=== PATIENT | female | born 1970 | race Caucasian/White ===

== ENCOUNTER 2018-06-10 10:42 | Inpatient (IN) | payer OTHER ==
[2018-06-10 12:17] LABS: ADD MAN DIFF? NO
[2018-06-10 12:23] LABS: WHITE BLOOD COUNT 9.6 10^3/ul (4.8-10.8)
[2018-06-10 12:23] LABS: BASOPHILS % 0.3 % (0.0-2.0); EOSINOPHILS # 0.3 10^3/ul (0.0-0.5); EOSINOPHILS % 3.1 % (0.0-7.0); HEMATOCRIT 32.2 % (37.0-47.0); HEMOGLOBIN 10.4 g/dl (12.0-16.0); LYMPHOCYTES # 1.2 10^3/ul (0.8-2.9); LYMPHOCYTES % 12.5 % (15.0-51.0); MEAN CORPUSCULAR HEMOGLOBIN 30.6 pg (29.0-33.0); MEAN CORPUSCULAR HGB CONC 32.3 g/dl (32.0-37.0); MEAN CORPUSCULAR VOLUME 94.7 fl (82.0-101.0); MEAN PLATELET VOLUME 10.1 fl (7.4-10.4); MONOCYTE # 0.9 10^3/ul (0.3-0.9); MONOCYTES % 9.6 % (0.0-11.0); NEUTROPHIL # 7.1 10^3/ul (1.6-7.5); PLATELET COUNT 221 10^3/UL (140-415); RED CELL DISTRIBUTION WIDTH 16.9 % (11.5-14.5)
[2018-06-10 12:30] LABS: ADD UMIC YES; UR ASCORBIC ACID NEGATIVE (NEGATIVE); UR BACTERIA MODERATE /HPF (NONE SEEN); UR BILIRUBIN (Dip) NEGATIVE (NEGATIVE); UR BLOOD (Dip) 1+ mg/dL (NEGATIVE); UR CLARITY CLOUDY (CLEAR); UR COLOR AMBER (YELLOW); UR GLUCOSE (Dip) NEGATIVE (NEGATIVE); UR KETONES (Dip) NEGATIVE (NEGATIVE); UR LEUKOCYTE ESTERASE (Dip) 3+ Leu/ul (NEGATIVE); UR MUCUS MODERATE /HPF (NONE SEEN); UR NITRITE (Dip) POSITIVE (NEGATIVE); UR RBC 23 /HPF (0-5); UR SPECIFIC GRAVITY (Dip) 1.018 (1.003-1.030); UR TOTAL PROTEIN (Dip) 1+ mg/dl (NEGATIVE); UR UROBILINOGEN (Dip) NEGATIVE (NEGATIVE); UR WBC > 182 /HPF (0-5)
[2018-06-10 12:40] LABS: ALANINE AMINOTRANSFERASE 176 IU/L (13-69); ALBUMIN 4.3 g/dl (3.3-4.9); ALBUMIN/GLOBULIN RATIO 1.19; ALKALINE PHOSPHATASE 306 IU/L (42-121); AMYLASE 56 U/L (11-123); ANION GAP 14 (5-13); ASPARTATE AMINO TRANSFERASE 98 IU/L (15-46); BILIRUBIN,INDIRECT 0.7 mg/dl (0-1.1); BILIRUBIN,TOTAL 0.7 mg/dl (0.2-1.3); BLOOD UREA NITROGEN 27 mg/dl (7-20); CALCIUM 11.3 mg/dl (8.4-10.2); CARBON DIOXIDE 19 mmol/L (21-31); CHLORIDE 105 mmol/L (97-110); CREATININE 0.65 mg/dl (0.44-1.00); Estimated GFR > 60 mL/min (>60); GLUCOSE 113 mg/dl (70-220); LIPASE 118 U/L (23-300); POTASSIUM 4.3 mmol/L (3.5-5.1); SODIUM 138 mmol/L (135-144); TOTAL PROTEIN 7.9 g/dl (6.1-8.1)
[2018-06-10 12:48] LABS: INR 0.96; PARTIAL THROMBOPLASTIN TIME 24.2 Sec (23.0-35.0); PROTIME 12.9 Sec (11.9-14.9)
[2018-06-10 12:51] LABS: TROPONIN-I < 0.012 ng/ml (0.000-0.120)
[2018-06-10] MEDS: ONDANSETRON 4 MG INJ IV (13:21)
[2018-06-10] MEDS: CEFTRIAXONE 1 GM/50 ML (PMX) 50 ML IVPB ×2 (13:22→17:14)
[2018-06-10] MEDS: HYDROmorphONE 1 MG/ML SYG IV (13:22)
[2018-06-10] MEDS ORDERED: ACETAMINOPHEN 325 MG TAB PO (13:30)
[2018-06-10] MEDS ORDERED: ONDANSETRON 4 MG INJ IV ×2 (13:30→16:00)
[2018-06-10] MEDS ORDERED: DOCUSATE SODIUM 100 MG CAP PO (16:00)
[2018-06-10] MEDS ORDERED: HYOSCYAMINE 0.125 MG SUBL TAB SL (16:00)
[2018-06-10] MEDS ORDERED: ONDANSETRON 4 MG TAB PO (16:00)
[2018-06-10] MEDS ORDERED: ZOLPIDEM 5 MG TAB PO (16:00)
[2018-06-10] MEDS ORDERED: BISACODYL 10 MG SUPP PR (16:00)
[2018-06-10] MEDS: SOD CHLORIDE 0.9% 1,000 ML IV (16:46)
[2018-06-10] MEDS: LEVETIRACETAM 500 MG TAB PO (17:15)
[2018-06-10] MEDS: morphine 2 MG INJ IV ×2 (17:15→21:34)
[2018-06-10] MEDS: SENNA TAB PO (20:44)
[2018-06-10] MEDS: HYDROCODONE/APAP (5/325) TAB PO (20:45)
[2018-06-10] MEDS: NYSTATIN 30 GM POWDER BTL TOP (20:45)
[2018-06-11] MEDS: SOD CHLORIDE 0.9% 1,000 ML IV ×3 (03:39→21:59)
[2018-06-11] MEDS: morphine 2 MG INJ IV ×4 (04:43→19:31)
[2018-06-11 05:14] LABS: ADD MAN DIFF? NO
[2018-06-11 05:18] LABS: BASOPHILS % 0.4 % (0.0-2.0); EOSINOPHILS # 0.5 10^3/ul (0.0-0.5); EOSINOPHILS % 6.3 % (0.0-7.0); HEMATOCRIT 29.6 % (37.0-47.0); HEMOGLOBIN 9.6 g/dl (12.0-16.0); LYMPHOCYTES # 1.4 10^3/ul (0.8-2.9); LYMPHOCYTES % 18.2 % (15.0-51.0); MEAN CORPUSCULAR HEMOGLOBIN 30.4 pg (29.0-33.0); MEAN CORPUSCULAR HGB CONC 32.4 g/dl (32.0-37.0); MEAN CORPUSCULAR VOLUME 93.7 fl (82.0-101.0); MEAN PLATELET VOLUME 10.2 fl (7.4-10.4); MONOCYTE # 0.9 10^3/ul (0.3-0.9); MONOCYTES % 11.3 % (0.0-11.0); NEUTROPHIL # 4.8 10^3/ul (1.6-7.5); NEUTROPHILS % 63.3 % (39.0-77.0); PLATELET COUNT 196 10^3/UL (140-415); RED BLOOD COUNT 3.16 10^6/ul (4.20-5.40); RED CELL DISTRIBUTION WIDTH 16.4 % (11.5-14.5)
[2018-06-11 05:18] LABS: WHITE BLOOD COUNT 7.6 10^3/ul (4.8-10.8)
[2018-06-11 05:33] LABS: HEMOGLOBIN A1C 4.6 % (0-5.9)
[2018-06-11 06:14] LABS: ALANINE AMINOTRANSFERASE 182 IU/L (13-69); ALBUMIN 3.7 g/dl (3.3-4.9); ALBUMIN/GLOBULIN RATIO 1.02; ALKALINE PHOSPHATASE 253 IU/L (42-121); ANION GAP 12 (5-13); ASPARTATE AMINO TRANSFERASE 93 IU/L (15-46); BILIRUBIN,INDIRECT 0.4 mg/dl (0-1.1); BILIRUBIN,TOTAL 0.4 mg/dl (0.2-1.3); BLOOD UREA NITROGEN 24 mg/dl (7-20); CALCIUM 10.6 mg/dl (8.4-10.2); CARBON DIOXIDE 20 mmol/L (21-31); CHLORIDE 105 mmol/L (97-110); CREATININE 0.51 mg/dl (0.44-1.00); Estimated GFR > 60 mL/min (>60); GLUCOSE 100 mg/dl (70-220); POTASSIUM 3.8 mmol/L (3.5-5.1); SODIUM 137 mmol/L (135-144); TOTAL PROTEIN 7.3 g/dl (6.1-8.1)
[2018-06-11 06:16] LABS: MAGNESIUM 0.9 mg/dl (1.7-2.5)
[2018-06-11] MEDS: FAMOTIDINE 20 MG TAB PO (08:26)
[2018-06-11] MEDS: LEVETIRACETAM 500 MG TAB PO ×2 (08:26→20:14)
[2018-06-11] MEDS: SENNA TAB PO ×2 (08:26→20:14)
[2018-06-11] MEDS: DULOXETINE 30 MG CAP DR PO (08:26)
[2018-06-11] MEDS: FLUDROCORTISONE 0.1 MG TAB PO (08:26)
[2018-06-11] MEDS: MAGNESIUM SULFATE 4 GM/100 ML 100 ML IVPB ×2 (08:27→13:52)
[2018-06-11] MEDS: NYSTATIN 30 GM POWDER BTL TOP ×2 (08:30→20:15)
[2018-06-11] MEDS ORDERED: ENOXAPARIN 40 MG/0.4 ML SYG SC (09:00)
[2018-06-11] MEDS: HYDROCODONE/APAP (5/325) TAB PO ×2 (11:40→21:41)
[2018-06-11] MEDS: CEFTRIAXONE 1 GM/50 ML (PMX) 50 ML IVPB (16:33)
[2018-06-11 20:45] LABS: MAGNESIUM 3.1 mg/dl (1.7-2.5)
[2018-06-11] MEDS: DIPHENHYDRAMINE 25 MG CAP PO (21:38)
[2018-06-12] MEDS: morphine 2 MG INJ IV ×4 (01:31→20:10)
[2018-06-12] MEDS: SOD CHLORIDE 0.9% 1,000 ML IV ×3 (01:32→12:06)
[2018-06-12] MEDS: LEVETIRACETAM 500 MG TAB PO ×2 (09:03→20:10)
[2018-06-12] MEDS: FAMOTIDINE 20 MG TAB PO (09:03)
[2018-06-12] MEDS: DULOXETINE 30 MG CAP DR PO (09:03)
[2018-06-12] MEDS: FLUDROCORTISONE 0.1 MG TAB PO (09:03)
[2018-06-12] MEDS: SENNA TAB PO ×2 (09:03→20:10)
[2018-06-12] MEDS: NYSTATIN 30 GM POWDER BTL TOP ×2 (09:04→19:54)
[2018-06-12] MEDS: CEFTRIAXONE 1 GM/50 ML (PMX) 50 ML IVPB (16:35)
[2018-06-12] MEDS: HYDROCODONE/APAP (5/325) TAB PO (16:37)
[2018-06-13] MEDS: morphine 2 MG INJ IV ×4 (00:13→18:44)
[2018-06-13] MEDS: SOD CHLORIDE 0.9% 1,000 ML IV ×2 (00:13→09:32)
[2018-06-13] MEDS: FLUDROCORTISONE 0.1 MG TAB PO (09:25)
[2018-06-13] MEDS: DULOXETINE 30 MG CAP DR PO (09:25)
[2018-06-13] MEDS: FAMOTIDINE 20 MG TAB PO (09:27)
[2018-06-13] MEDS: SENNA TAB PO ×2 (09:28→20:14)
[2018-06-13] MEDS: LEVETIRACETAM 500 MG TAB PO ×2 (09:28→20:14)
[2018-06-13] MEDS: HYDROCODONE/APAP (5/325) TAB PO (09:30)
[2018-06-13] MEDS: ACETAMINOPHEN 325 MG TAB PO (12:02)
[2018-06-13] MEDS: LORAZEPAM 0.5 MG TAB PO (12:02)
[2018-06-13] MEDS: NYSTATIN 30 GM POWDER BTL TOP ×2 (13:25→20:15)
[2018-06-13] MEDS: DIPHENHYDRAMINE 50 MG CAP PO (20:14)
[2018-06-14] MEDS: DULOXETINE 30 MG CAP DR PO (09:03)
[2018-06-14] MEDS: FLUDROCORTISONE 0.1 MG TAB PO (09:04)
[2018-06-14] MEDS: FAMOTIDINE 20 MG TAB PO (09:04)
[2018-06-14] MEDS: LEVETIRACETAM 500 MG TAB PO ×2 (09:04→20:15)
[2018-06-14] MEDS: SENNA TAB PO ×2 (09:05→20:15)
[2018-06-14] MEDS: DIPHENHYDRAMINE 50 MG CAP PO ×2 (09:13→18:11)
[2018-06-14] MEDS: NYSTATIN 30 GM POWDER BTL TOP ×2 (09:52→20:20)
[2018-06-14] MEDS: morphine 2 MG INJ IV (20:16)
[2018-06-14] MEDS: HYDROCODONE/APAP (5/325) TAB PO (23:02)
[2018-06-15] MEDS: DIPHENHYDRAMINE 50 MG CAP PO ×2 (00:07→06:32)
[2018-06-15] MEDS: morphine 2 MG INJ IV ×2 (05:08→23:42)
[2018-06-15] MEDS: LEVETIRACETAM 500 MG TAB PO ×2 (10:20→21:37)
[2018-06-15] MEDS: DULOXETINE 30 MG CAP DR PO (10:20)
[2018-06-15] MEDS: FLUDROCORTISONE 0.1 MG TAB PO (10:21)
[2018-06-15] MEDS: SENNA TAB PO ×2 (10:21→21:37)
[2018-06-15] MEDS: NYSTATIN 30 GM POWDER BTL TOP ×2 (10:22→21:40)
[2018-06-15] MEDS: FAMOTIDINE 20 MG TAB PO (10:22)
[2018-06-15] MEDS: SOD CHLORIDE 0.9% 1,000 ML IV (15:13)
[2018-06-15 16:31] LABS: ADD MAN DIFF? NO
[2018-06-15 16:33] LABS: WHITE BLOOD COUNT 7.7 10^3/ul (4.8-10.8)
[2018-06-15 16:33] LABS: BASOPHILS % 0.4 % (0.0-2.0); EOSINOPHILS # 0.3 10^3/ul (0.0-0.5); EOSINOPHILS % 3.5 % (0.0-7.0); HEMATOCRIT 28.9 % (37.0-47.0); HEMOGLOBIN 9.6 g/dl (12.0-16.0); LYMPHOCYTES # 1.4 10^3/ul (0.8-2.9); MEAN CORPUSCULAR HEMOGLOBIN 30.8 pg (29.0-33.0); MEAN CORPUSCULAR HGB CONC 33.2 g/dl (32.0-37.0); MEAN CORPUSCULAR VOLUME 92.6 fl (82.0-101.0); MEAN PLATELET VOLUME 9.8 fl (7.4-10.4); MONOCYTE # 0.6 10^3/ul (0.3-0.9); MONOCYTES % 7.6 % (0.0-11.0); NEUTROPHIL # 5.4 10^3/ul (1.6-7.5); NEUTROPHILS % 69.8 % (39.0-77.0); PLATELET COUNT 229 10^3/UL (140-415); RED BLOOD COUNT 3.12 10^6/ul (4.20-5.40); RED CELL DISTRIBUTION WIDTH 15.5 % (11.5-14.5)
[2018-06-15 17:02] LABS: ANION GAP 10 (5-13); BLOOD UREA NITROGEN 15 mg/dl (7-20); CALCIUM 10.2 mg/dl (8.4-10.2); CARBON DIOXIDE 19 mmol/L (21-31); CHLORIDE 110 mmol/L (97-110); CREATININE 0.47 mg/dl (0.44-1.00); Estimated GFR > 60 mL/min (>60); GLUCOSE 104 mg/dl (70-220); POTASSIUM 3.4 mmol/L (3.5-5.1); SODIUM 139 mmol/L (135-144)
[2018-06-15] MEDS: morphine (ER) 15 MG TAB PO (22:30)
[2018-06-16] MEDS: morphine (ER) 15 MG TAB PO ×3 (05:53→22:23)
[2018-06-16] MEDS: SENNA TAB PO ×2 (08:53→20:56)
[2018-06-16] MEDS: NYSTATIN 30 GM POWDER BTL TOP ×2 (08:53→20:56)
[2018-06-16] MEDS: FAMOTIDINE 20 MG TAB PO (08:53)
[2018-06-16] MEDS: LEVETIRACETAM 500 MG TAB PO ×2 (08:53→20:56)
[2018-06-16] MEDS: FLUDROCORTISONE 0.1 MG TAB PO (08:53)
[2018-06-16] MEDS: DULOXETINE 30 MG CAP DR PO (08:53)
[2018-06-16] MEDS: DIPHENHYDRAMINE 50 MG CAP PO ×3 (08:57→23:15)
[2018-06-17] MEDS: morphine (ER) 15 MG TAB PO ×3 (05:47→22:00)
[2018-06-17] MEDS: DIPHENHYDRAMINE 50 MG CAP PO ×3 (05:48→19:26)
[2018-06-17] MEDS: SENNA TAB PO ×2 (09:13→20:36)
[2018-06-17] MEDS: DULOXETINE 30 MG CAP DR PO (09:13)
[2018-06-17] MEDS: LEVETIRACETAM 500 MG TAB PO ×2 (09:13→20:36)
[2018-06-17] MEDS: NYSTATIN 30 GM POWDER BTL TOP ×2 (09:14→20:36)
[2018-06-17] MEDS: FAMOTIDINE 20 MG TAB PO (09:14)
[2018-06-17] MEDS: FLUDROCORTISONE 0.1 MG TAB PO (09:14)
[2018-06-17] MEDS: morphine 2 MG INJ IV (12:45)
[2018-06-18] MEDS: DIPHENHYDRAMINE 50 MG CAP PO ×3 (04:21→17:41)
[2018-06-18] MEDS: morphine (ER) 15 MG TAB PO ×3 (06:09→22:27)
[2018-06-18] MEDS: HYDROCODONE/APAP (5/325) TAB PO ×2 (08:07→19:18)
[2018-06-18] MEDS: DULOXETINE 30 MG CAP DR PO (09:11)
[2018-06-18] MEDS: FLUDROCORTISONE 0.1 MG TAB PO (09:11)
[2018-06-18] MEDS: LEVETIRACETAM 500 MG TAB PO ×2 (09:11→21:08)
[2018-06-18] MEDS: FAMOTIDINE 20 MG TAB PO (09:13)
[2018-06-18] MEDS: NYSTATIN 30 GM POWDER BTL TOP ×2 (09:13→21:08)
[2018-06-18] MEDS: SENNA TAB PO ×2 (09:13→21:08)
[2018-06-19] MEDS: DIPHENHYDRAMINE 50 MG CAP PO ×4 (00:24→22:36)
[2018-06-19] MEDS: morphine (ER) 15 MG TAB PO ×3 (05:57→21:07)
[2018-06-19] MEDS: NYSTATIN 30 GM POWDER BTL TOP ×2 (09:00→21:11)
[2018-06-19] MEDS: SENNA TAB PO ×2 (09:00→21:07)
[2018-06-19] MEDS: DULOXETINE 30 MG CAP DR PO (09:29)
[2018-06-19] MEDS: LEVETIRACETAM 500 MG TAB PO ×2 (09:30→21:07)
[2018-06-19] MEDS: FAMOTIDINE 20 MG TAB PO (09:31)
[2018-06-19] MEDS: FLUDROCORTISONE 0.1 MG TAB PO (09:31)
[2018-06-19] MEDS: morphine 2 MG INJ IV (09:32)
[2018-06-19] MEDS: NACL 0.9% 3 ML SYG IV (09:44)
[2018-06-19] MEDS: HYDROCODONE/APAP (5/325) TAB PO (11:46)
[2018-06-20] MEDS: HYDROCODONE/APAP (5/325) TAB PO ×3 (01:15→16:10)
[2018-06-20] MEDS: ALTEPLASE (CATHFLO) 2 MG INJ CATHETER (03:07)
[2018-06-20] MEDS: morphine (ER) 15 MG TAB PO ×3 (06:11→22:57)
[2018-06-20 08:32] LABS: ADD MAN DIFF? NO
[2018-06-20] MEDS: DULOXETINE 30 MG CAP DR PO (08:32)
[2018-06-20] MEDS: SENNA TAB PO ×2 (08:32→22:56)
[2018-06-20] MEDS: DIPHENHYDRAMINE 50 MG CAP PO ×2 (08:32→16:11)
[2018-06-20 08:33] LABS: WHITE BLOOD COUNT 7.4 10^3/ul (4.8-10.8)
[2018-06-20 08:33] LABS: BASOPHILS % 0.4 % (0.0-2.0); EOSINOPHILS # 0.4 10^3/ul (0.0-0.5); EOSINOPHILS % 4.9 % (0.0-7.0); HEMATOCRIT 32.6 % (37.0-47.0); HEMOGLOBIN 10.6 g/dl (12.0-16.0); LYMPHOCYTES # 1.6 10^3/ul (0.8-2.9); LYMPHOCYTES % 21.6 % (15.0-51.0); MEAN CORPUSCULAR HEMOGLOBIN 30.2 pg (29.0-33.0); MEAN CORPUSCULAR HGB CONC 32.5 g/dl (32.0-37.0); MEAN CORPUSCULAR VOLUME 92.9 fl (82.0-101.0); MEAN PLATELET VOLUME 10.8 fl (7.4-10.4); MONOCYTE # 0.6 10^3/ul (0.3-0.9); MONOCYTES % 7.6 % (0.0-11.0); NEUTROPHIL # 4.8 10^3/ul (1.6-7.5); NEUTROPHILS % 64.7 % (39.0-77.0); PLATELET COUNT 164 10^3/UL (140-415); RED BLOOD COUNT 3.51 10^6/ul (4.20-5.40); RED CELL DISTRIBUTION WIDTH 14.7 % (11.5-14.5)
[2018-06-20] MEDS: FLUDROCORTISONE 0.1 MG TAB PO (08:33)
[2018-06-20] MEDS: FAMOTIDINE 20 MG TAB PO (08:33)
[2018-06-20] MEDS: LEVETIRACETAM 500 MG TAB PO ×2 (08:33→22:56)
[2018-06-20] MEDS: NYSTATIN 30 GM POWDER BTL TOP ×2 (08:33→22:57)
[2018-06-20 08:58] LABS: ANION GAP 11 (5-13); BLOOD UREA NITROGEN 22 mg/dl (7-20); CARBON DIOXIDE 19 mmol/L (21-31); CHLORIDE 107 mmol/L (97-110); CREATININE 0.54 mg/dl (0.44-1.00); Estimated GFR > 60 mL/min (>60); GLUCOSE 96 mg/dl (70-220); POTASSIUM 4.4 mmol/L (3.5-5.1); SODIUM 137 mmol/L (135-144)
[2018-06-20] MEDS: morphine 2 MG INJ IV (10:15)
[2018-06-20] MEDS: hydrOXYzine HCL 25 MG TAB PO ×2 (14:06→22:57)
[2018-06-20] MEDS: SOD CHLORIDE 0.9% 250 ML IV (22:27)
[2018-06-21] MEDS: morphine (ER) 15 MG TAB PO ×3 (06:00→23:03)
[2018-06-21] MEDS: HYDROCODONE/APAP (5/325) TAB PO (07:30)
[2018-06-21] MEDS: SENNA TAB PO ×2 (08:49→20:44)
[2018-06-21] MEDS: FLUDROCORTISONE 0.1 MG TAB PO (08:49)
[2018-06-21] MEDS: LEVETIRACETAM 500 MG TAB PO ×2 (08:49→20:44)
[2018-06-21] MEDS: FAMOTIDINE 20 MG TAB PO (08:49)
[2018-06-21] MEDS: DULOXETINE 30 MG CAP DR PO (08:49)
[2018-06-21] MEDS: hydrOXYzine HCL 25 MG TAB PO ×3 (08:49→20:44)
[2018-06-21] MEDS: NYSTATIN 30 GM POWDER BTL TOP ×2 (08:49→20:44)
[2018-06-21] MEDS: HYDROCORTISONE 1% 28.35 GM OINT TOP (20:44)
[2018-06-22] MEDS: HYDROCODONE/APAP (5/325) TAB PO (00:17)
[2018-06-22] MEDS: morphine (ER) 15 MG TAB PO ×3 (06:00→21:58)
[2018-06-22] MEDS: LEVETIRACETAM 500 MG TAB PO ×2 (08:40→20:57)
[2018-06-22] MEDS: FLUDROCORTISONE 0.1 MG TAB PO (08:40)
[2018-06-22] MEDS: SENNA TAB PO ×2 (08:40→20:58)
[2018-06-22] MEDS: hydrOXYzine HCL 25 MG TAB PO ×3 (08:40→20:57)
[2018-06-22] MEDS: HYDROCORTISONE 1% 28.35 GM OINT TOP ×2 (08:40→20:58)
[2018-06-22] MEDS: DULOXETINE 30 MG CAP DR PO (08:40)
[2018-06-22] MEDS: FAMOTIDINE 20 MG TAB PO (08:40)
[2018-06-22] MEDS: NYSTATIN 30 GM POWDER BTL TOP ×2 (08:41→20:58)
[2018-06-22] MEDS: DIPHENHYDRAMINE 50 MG CAP PO (18:26)
[2018-06-22] MEDS: HEPARIN (100 UNITS/ML) 5 ML SYG CATHETER (18:27)
[2018-06-23] MEDS: DIPHENHYDRAMINE 50 MG CAP PO (04:14)
[2018-06-23] MEDS: morphine (ER) 15 MG TAB PO ×3 (05:50→21:51)
[2018-06-23] MEDS: FLUDROCORTISONE 0.1 MG TAB PO (08:27)
[2018-06-23] MEDS: hydrOXYzine HCL 25 MG TAB PO ×3 (08:28→21:51)
[2018-06-23] MEDS: FAMOTIDINE 20 MG TAB PO (08:28)
[2018-06-23] MEDS: DULOXETINE 30 MG CAP DR PO (08:28)
[2018-06-23] MEDS: SENNA TAB PO ×2 (08:28→21:51)
[2018-06-23] MEDS: LEVETIRACETAM 500 MG TAB PO ×2 (08:28→21:51)
[2018-06-23] MEDS: NYSTATIN 30 GM POWDER BTL TOP ×2 (08:29→21:52)
[2018-06-23] MEDS: HYDROCORTISONE 1% 28.35 GM OINT TOP ×2 (08:29→21:51)
[2018-06-24] MEDS: morphine (ER) 15 MG TAB PO ×3 (05:45→22:16)
[2018-06-24] MEDS: SENNA TAB PO ×2 (09:07→21:00)
[2018-06-24] MEDS: LEVETIRACETAM 500 MG TAB PO ×2 (09:07→22:15)
[2018-06-24] MEDS: DULOXETINE 30 MG CAP DR PO (09:07)
[2018-06-24] MEDS: hydrOXYzine HCL 25 MG TAB PO ×3 (09:07→22:14)
[2018-06-24] MEDS: FAMOTIDINE 20 MG TAB PO (09:08)
[2018-06-24] MEDS: NYSTATIN 30 GM POWDER BTL TOP ×2 (09:08→22:16)
[2018-06-24] MEDS: HYDROCORTISONE 1% 28.35 GM OINT TOP ×2 (09:08→19:55)
[2018-06-24] MEDS: FLUDROCORTISONE 0.1 MG TAB PO (09:08)
[2018-06-24] MEDS: HYDROCODONE/APAP (5/325) TAB PO (09:49)
[2018-06-25] MEDS: HYDROCODONE/APAP (5/325) TAB PO (01:16)
[2018-06-25] MEDS: morphine (ER) 15 MG TAB PO ×2 (06:00→12:55)
[2018-06-25] MEDS: HYDROCORTISONE 1% 28.35 GM OINT TOP (08:56)
[2018-06-25] MEDS: FLUDROCORTISONE 0.1 MG TAB PO (08:56)
[2018-06-25] MEDS: FAMOTIDINE 20 MG TAB PO (08:56)
[2018-06-25] MEDS: hydrOXYzine HCL 25 MG TAB PO ×2 (08:56→12:55)
[2018-06-25] MEDS: DULOXETINE 30 MG CAP DR PO (08:56)
[2018-06-25] MEDS: LEVETIRACETAM 500 MG TAB PO (08:56)
[2018-06-25] MEDS: NYSTATIN 30 GM POWDER BTL TOP (08:56)
[2018-06-25] MEDS: SENNA TAB PO (08:56)
== END 2018-06-25 13:52 | DRG 393 ==
LOC: E/R 10:42 → MS1 13:26
DX: K94.12 Enterostomy infection (principal); E43 Unspecified severe protein-calorie malnutrition; T83.511A Infection and inflammatory reaction due to indwelling urethral catheter, initial encounter; L03.311 Cellulitis of abdominal wall; C56.9 Malignant neoplasm of unspecified ovary; Z68.1 Body mass index [BMI] 19.9 or less, adult; R64 Cachexia; N39.0 Urinary tract infection, site not specified; Z66 Do not resuscitate; Z86.73 Personal history of transient ischemic attack (TIA), and cerebral infarction without residual deficits; D64.9 Anemia, unspecified; D63.8 Anemia in other chronic diseases classified elsewhere
CPT/HCPCS: 71045; 80048; 80053; 81001; 82150; 83036; 83690; 83735; 84100; 84484; 85025; 85610; 85730; 87040-91; 87086; 90686; 93005; 96374; 96375; 97110; 97161; 97165; 97530; 97535; 99217; 99291-25